=== PATIENT | female | born 1990 | race Caucasian/White ===

== ENCOUNTER 2017-05-15 21:14 | Emergency (ER) | payer BC, OTHER ==
[~2017-05-15] VITALS: Ht 174 cm; Wt 64.2 kg
[2017-05-15 21:19] VITALS: BP 140/84; PULSE 93; TEMP 36.3; O2SAT 97; Ht 174 cm; Wt 64.2 kg
[2017-05-15] MEDS ORDERED: BCPILLS PO (21:49)
[2017-05-15] MEDS ORDERED: MOME200A INH (21:49)
[2017-05-15] MEDS ORDERED: BECL1AER5 NAE (21:49)
[2017-05-15] MEDS ORDERED: MONT1TAB3 PO (21:49)
[2017-05-15] MEDS ORDERED: ALBU18002 INH (21:50)
[2017-05-15] MEDS ORDERED: IBUP-1050 PO (21:52)
[2017-05-15] MEDS ORDERED: IBUPROFEN 600 MG TAB PO STA (22:08)
[2017-05-15] MEDS ORDERED: ACETAMINOPHEN 500 MG TAB PO STA (22:08)
--- NOTE | 2017-05-15 22:09 | EMERGENCY ROOM VISIT NOTE ---
ED Visit Note First contact with patient: 21:34 CHIEF COMPLAINT: Wrist injury This patient is a 26-year-old female that presents to the emergency department complaining of left wrist pain. She was ice skating and fell on her outstretched hand. She denies any numbness or tingling. She has not taken anything for pain. No previous injuries to the wrist. REVIEW OF SYSTEMS: 6 system review performed and negative unless otherwise noted PMH: The patient is healthy; SOCIAL HISTORY: Patient lives at home. PHYSICAL EXAM: Vital Signs: Reviewed Nurse's notes. MENTAL STATUS: Alert and oriented. WRIST: Edema and tenderness to palpation over the distal radius. Range of motion is significantly limited secondary to pain. Positive snuffbox tenderness. SKIN: Normal and intact. The hand is warm and well perfused and the fingers move normally. EMERGENCY DEPARTMENT COURSE: The patient was seen and examined. She was medicated with Motrin and Tylenol. Imaging was performed and reviewed. The findings were discussed with the patient. She was placed in a volar splint. Discharge instructions were reviewed, and she was discharged in good condition DIAGNOSIS: Left wrist fracture DISCHARGE INSTRUCTIONS & TREATMENT: You sustained a fracture of your radius. Please apply ice for 20 minute intervals over the next 48 hours. Elevate above your heart. Ibuprofen 800 mg and/or Tylenol 1000 mg every 8 hours for pain You may also alternate these medications for more effective pain relief: Ibuprofen --4 HRS--> Tylenol --4 HRS--> ibuprofen --4 HRS--> Tylenol .... Please keep the splint in place. Do not get wet. It is very important to follow-up with an orthopedic doctor. Please call on Tuesday for a follow-up appointment. Do not hesitate to return to the emergency department with any new, worsening or concerning symptoms. This chart was completed in part utilizing [employer] Speech Voice Recognition software. Attempts were made to minimize the grammatical errors, random word insertions, pronoun errors and incomplete sentences. Any formal questions or concerns about the content, text or information contained within the body of this dictation should be directly addressed to the provider for clarification.
--- NOTE | 2017-05-15 22:12 | DIAGNOSTIC IMAGING REPORT ---
L WRIST W/NAVICULAR MIN 3 VIEWS CLINICAL HISTORY: injury trauma. Pain. COMPARISON: None. DISCUSSION: Subtle cortical fracture dorsal aspect distal radius. Bony alignment is anatomic. All remaining osseous structures are unremarkable. There is mild dorsal soft tissue edema in the carpal navicular is unremarkable. Moderate dorsal soft tissue edema IMPRESSION: Cortical buckle fracture dorsal aspect distal radius. Soft tissue edema. The above report was generated using voice recognition software. It may contain grammatical, syntax or spelling errors. Electronically signed by: Munir Kaur M.D. 05/15/2017 10:11 PM Dictated Date/Time: 05/15/2017 10:10 PM
== END 2017-05-15 22:33 | disposition home or self-care (01) ==
LOC: C.EDB 21:16 → C.EDD 22:33
DX: S52.592A Other fractures of lower end of left radius, initial encounter for closed fracture (principal); W00.0XXA Fall on same level due to ice and snow, initial encounter; Y92.89 Other specified places as the place of occurrence of the external cause; Y93.21 Activity, ice skating